=== PATIENT | female | born 1975 | race Two or more races ===

== ENCOUNTER → 2024-06-26 | Outpatient (CLI) | payer MEDICAID, SELFPAY ==
--- NOTE | 2024-06-26 12:00 | XR_ITS ---
Examination: Thyroid sonography complete TECHNIQUE: Grayscale sonographic images thyroid lobes with color flow analysis Exam date and time: June 26, 2024 0002 hours Comparison February 21, 2024, INDICATIONS: thyroid sonogram 02/21/2024 Isthmus left thyroid nodules FINDINGS: Right thyroid 4.6 x 1.5 x 2.0 cm Midpole nodule 6 x 6 mm Lower pole nodule 4 x 4 millimeter Isthmus nodule 6 x 5 mm Left thyroid 4.3 x 1.4 x 1.5 cm Midpole nodule 7 x 7 mm IMPRESSION: Small thyroid nodules as above
== END | disposition home or self-care (01) ==
PROVIDERS: PCP Nurse Practitioner Family; Referring Provider Internal Medicine Endocrinology, Diabetes & Metabolism; Visit Provider Internal Medicine Endocrinology, Diabetes & Metabolism
DX: E04.2 Nontoxic multinodular goiter (principal)
CPT/HCPCS: 76536

== ENCOUNTER → 2024-07-28 | Outpatient (BNVA) | payer MEDICAID, SELFPAY | END | disposition home or self-care (01) | PROVIDERS: PCP Nurse Practitioner Family; Referring Provider Nurse Practitioner Family; Visit Provider Urology | DX: Z09 Encounter for follow-up examination after completed treatment for conditions other than malignant neoplasm (principal); Z87.442 Personal history of urinary calculi; E11.9 Type 2 diabetes mellitus without complications; I10 Essential (primary) hypertension; E66.9 Obesity, unspecified; Z68.38 Body mass index [BMI] 38.0-38.9, adult | CPT/HCPCS: 81003; 99212; G0463 ==

== ENCOUNTER → 2024-08-13 | Outpatient (CLI) | payer MEDICAID, SELFPAY ==
--- NOTE | 2024-08-13 08:45 | XR_ITS ---
Examination: Screening digital mammography, bilateral Computer aided detection 3-D breast Tomosynthesis, bilateral Date and time of exam: 08/13/2024, 8:45 AM Comparisons: September 2021, February 2023 Indications: Screening Technique: Nonmagnified MLO, CC views of the breasts to been obtained, reconstructed from 3-D Tomosynthesis images. R2 computer aided detection program utilized for evaluation of suspicious masses and/or abnormal calcifications. 3-D Tomosynthesis images obtained. Technologist: Findings: The breasts are heterogeneously dense, which may obscure small masses. No evidence of abnormal masses or suspicious calcifications. Impression: BI-RADS category 1: Negative findings (within normal) Recommend 1 year follow-up mammogram
== END | disposition home or self-care (01) ==
LOC: CDIM 08:35
PROVIDERS: Referring Provider Nurse Practitioner Family; Visit Provider Nurse Practitioner Family
DX: Z12.31 Encounter for screening mammogram for malignant neoplasm of breast (principal); R92.313 Mammographic fatty tissue density, bilateral breasts
CPT/HCPCS: 77063; 77067

== ENCOUNTER 2024-10-20 10:33 | Emergency (ER) | payer MEDICAID, SELFPAY ==
[2024-10-20 11:07] VITALS: BP 121/83; PULSE 82; RESP 18; TEMP 36.5; O2SAT 97
--- NOTE | 2024-10-20 11:16 | XR_ITS ---
Examination: CT abdomen and pelvis without contrast. Coronal 3-D reconstructions. Sagittal 2-D reconstructions. Date and time of exam:October 20, 2024 1508 hours INDICATIONS: Bilateral flank pain beginning one week ago, history mild right hydronephrosis 17 mm calculus in the right renal pelvis on CT stone study August 10, 2023 CTDI: vol (mGy): 12.8 DLP: (mGycm): 759 Technique: Axial images of the abdomen have been obtained, 3 mm slice thickness Intravenous contrast material has not been administered. Low dose protocols were performed. One or more of the following dose reduction techniques were used; automated exposure control, adjustment of the mA and/or KV according to patient size, use of iterative reconstruction technique. Findings: Significant diffuse fatty infiltration throughout the liver, no liver or splenic lesions Absent gallbladder No pancreatic or adrenal mass 2 mm lower pole nonobstructing right renal calculus 1 mm lower pole nonobstructing left renal calculus No hydronephrosis or ureteral calculi 12 mm fat-containing umbilical hernia. Normal appendix No bowel obstruction No pelvic mass No bladder mass or bladder calculi IMPRESSION: Bilateral nonobstructing renal calculi, no hydronephrosis or ureteral calculi
--- NOTE | 2024-10-20 11:16 | PD.EDRME ---
Rapid Medical Screening Exam RME Arrival date/time: 10/20/24 10:33 48-year-old female presents the emergency department for complaint of flank pain and back pain Chief Complaint: General Adult/Misc Complain Time Seen by Provider: 10/20/24 11:03 Vital signs: Vital Signs Temperature 97.7 F 10/20/24 11:07 Pulse Rate 82 10/20/24 11:07 Respiratory Rate 18 10/20/24 11:07 Blood Pressure 121/83 10/20/24 11:07 Pulse Oximetry (%) 97 10/20/24 11:07 Oxygen Delivery Method Room Air 10/20/24 11:07
[2024-10-20 11:45] LABS: Basophils % (Auto) 0 % (0-2.5); Eosinophils # (Auto) 0.2 Thou/mm3 (0.0-0.5); Eosinophils % (Auto) 2 % (0-10); Hematocrit 39.1 % (36.0-46.0); Hemoglobin 13.2 g/dL (12.0-16.0); Immature Granulocytes % (Auto) 0 % (0-0); Immature Granulocytes Auto 0.03 Thou/mm3 (0.00-0.00); Lymphocytes # (Auto) 3.4 Thou/mm3 (1.0-4.8); Lymphocytes % (Auto) 31 % (10-50); Mean Corpuscular HGB Conc 33.8 g/dl (31.0-37.0); Mean Corpuscular Hemoglobin 27.6 pg (25.0-35.0); Mean Corpuscular Volume 82 fL (80-100); Monocytes # (Auto) 0.7 Thou/mm3 (0.0-0.8); Monocytes % (Auto) 7 % (0-12); Neutrophils # (Auto) 6.7 Thou/mm3 (1.8-7.7); Neutrophils % (Auto) 60 % (37-80); Nucleated Red Blood Cell % 0 /100 WBC (0); Platelet Count 421 Thou/mm3 (140-440); RDW Standard Deviation 37.6 fL (36.4-46.3); Red Blood Count 4.78 Miln/mm3 (4.00-5.20); White Blood Count 11.1 Thou/mm3 (3.6-11.0)
[2024-10-20 11:58] LABS: Alanine Aminotransferase 35 U/L (10-49); Albumin/Globulin Ratio 1.5 (1.2-2.2); Alkaline Phosphatase 135 U/L (46-116); Anion Gap 6 (7-16); Aspartate Amino Transferase 23 U/L (0-34); BUN/Creatinine Ratio 14 Ratio (12-20); Bilirubin,Total 0.5 mg/dL (0.3-1.2); Blood Urea Nitrogen 10 mg/dL (9-23); Calcium 9.6 mg/dL (8.3-10.6); Calcium (Corrected) 9.6 mg/dL (8.5-10.1); Carbon Dioxide 27.6 mMol/L (20.0-31.0); Chloride 100 mMol/L (98-107); Creatinine (Component) 0.7 mg/dL (0.6-1.3); Globulin 3.3 gm/dL (2.3-3.5); Glucose 130 mg/dL (74-106); Lipase 41 U/L (12-53); Osmolality,Calculated 269 (275-295); Potassium 3.6 mMol/L (3.4-5.1); Sodium 134 mMol/L (136-145); Total Protein 8.3 gm/dL (5.7-8.2); eGFR > 60 See Note
[2024-10-20 12:00] LABS: Collection Type, Urine Clean Catch
[2024-10-20 12:29] LABS: HCG Qualitative,Urine Negative
[2024-10-20 12:45] LABS: Bacteria,Urine Rare; Bilirubin,Urine Negative (Negative); Blood,Urine 2+ (Negative); Clarity,Urine Turbid (Clear/Hazy); Color,Urine Lt-Yellow (Lt Yel-Yel); Glucose, Urine Negative (Negative); Ketones,Urine Negative (Negative); Leukocyte Esterase,Urine Positive (Negative); Nitrite,Urine Negative (Negative); PH,Urine 6.5 (5.0-7.0); Protein,Urine Negative (Neg - Trace); RBC,Urine 48 /hpf (0-3); Specific Gravity,Urine 1.008 (1.001-1.035); Squamous Epithelial Cell,Urine 4 /hpf (0-5); Urobilinogen,Urine Negative mg/dL (0.0-1.0); WBC,Urine 363 /hpf (0-5)
[2024-10-20 12:53] LABS: Culture Indicated,Urine Yes
[2024-10-20 16:10] VITALS: BP 141/88; PULSE 79; RESP 18; TEMP 36.4; O2SAT 96
--- NOTE | 2024-10-20 16:25 | PD.EDADULT ---
ED General RME/HPI General Chief complaint: General Adult/Misc Complain Stated complaint: PAIN/BURNING ON URINATION, FLANK PAIN 1 WK Time Seen by Provider: 10/20/24 11:03 Arrival date/time: 10/20/24 10:33 CC: Left low back pain site-specific HPI onset 1 week ago waxing waning but worse at nighttime, has been taking Tylenol with no relief. Patient is concerned because of a history of kidney stones and is concerned this to happen patient denies nausea vomiting fever chills shortness of breath or difficulty breathing no other complaints at this time. Patient denies bowel or bladder symptoms saddle anesthesia numbness tingling or weakness in the lower extremities. Localized pain is 3-4 and the 10 scale. RME / HPI RME / HPI narrative: 10/20/24 10:33 48-year-old female presents the emergency department for complaint of flank pain and back pain Related Data Home Medications ?Medication ?Instructions ?Recorded ?Confirmed venlafaxine 37.5 mg tablet 37.5 mg PO BID 07/17/23 07/28/24 metformin 500 mg tablet 500 mg PO BID 07/28/24 07/28/24 Previous Rx's ?Medication ?Instructions ?Recorded ciprofloxacin HCl 500 mg tablet 500 mg PO BID #14 tabs 10/20/24 cyclobenzaprine 10 mg tablet 10 mg PO HS #10 tabs 10/20/24 meloxicam 7.5 mg tablet 7.5 mg PO QDAY PRN pain (scale 10/20/24 score 1-3) #10 tabs Allergies Allergy/AdvReac Type Severity Reaction Status Date / Time No Known Allergies Allergy Verified 10/20/24 10:38 Review of Systems Review of Systems Narrative Review of Systems: GEN: No fever, no chills, no weight loss EYES: No discharge, no visual changes, no pain HEENT: No ear pain, no congestion, no sore throat PULM: No shortness of breath, no cough, no congestion CV: No chest pain, no dyspnea on exertion, no palpitations GI: No nausea, no vomiting, no diarrhea, no pain, no constipation : No frequency, no urgency, no dysuria MUSC/SKEL: No joint pain, + back pain SKIN: No rash PSYCH: No hallucinations, no depression HEME/LYMPH: No easy bleeding or bruising tendencies NEURO: No weakness, no headache Past Medical History Past Medical History NEUROLOGIC: Negative Neurological Disorders or Seizures CARDIAC: Positive Hypertension; Negative Cardiac Disorders or Congestive Heart Failure RESPIRATORY: Negative Chronic Obstructive Pulmonary Disease (COPD) GASTROINTESTINAL: Positive Gastrointestinal Disorders and Obesity GENITOURINARY: Positive Genitourinary Disorders and Kidney Stones; Negative Renal Disease REPRODUCTIVE: Positive Previous Pregnancies (4) MUSCULOSKELETAL: Negative Musculoskeletal Disorders ENDOCRINE: Positive Endocrine Disorders and Diabetes Mellitus Type 2 (waiting for meds); Negative Diabetes Mellitus Type 1 HEMATOLOGIC: Negative Blood Disorders PSYCHO/SOCIAL: Positive Anxiety OTHER HISTORY: Positive Measles; Negative Hospitalization, Autoimmune Disease, Shingles, Blood Transfusions, Blood Transfusion Reaction, Anesthesia Reactions or Cancer Family History FAMILY HISTORY: Positive Family Cardiac Disorders; Negative Family Psychiatric Problems, Family Respiratory Disorders, Family Gastrointestinal Problems, Family Cancer, Family Surgery or Family Anesthesia Reaction Surgical History SURGICAL: Positive Tubal Ligation Social History SMOKING STATUS: Never smoker ED Exam Narrative Physical exam: [General: Obese not in any acute distress Head normocephalic HEENT: Within acceptable limits Neck is supple nontender Chest equal chest rise nontender to palpation Respiratory: Clear to auscultation no wheezes crackles or rubs CV: Rate rhythm is regular no murmurs rubs or clicks Abdomen is distended secondary to body habitus soft nontender no masses positive bowel sounds all 4 quadrants Back: Site-specific right lumbar paraspinal tenderness with palpation no left-sided or spinous process tenderness with palpation. Skin: Intact no petechiae rash induration ulceration or crepitus Extremities: Moving all extremity against resistance cap refill less than 2 seconds neurosensory intact Neuro: Awake alert oriented x3 Glascow coma 15 no focal deficits] Course Course Course Narrative: Low back pain with UTI Quality Measures none Orders Category Date Time Status CT abdomen pelvis wo con Stat Exams 10/20/24 11:16 Completed CBC Stat Lab 10/20/24 11:20 Completed Comprehensive Metabolic Panel Stat Lab 10/20/24 11:20 Completed HCG Qualitative,Urine Stat Lab 10/20/24 11:41 Completed Lipase Stat Lab 10/20/24 11:20 Completed UA, C/S IF [Urinalysis, C/S if Indicated] Stat Lab 10/20/24 11:41 Completed Urine Culture Stat Lab 10/20/24 11:41 Received Vital Signs Vital signs: Vital Signs Temperature 97.7 F 10/20/24 11:07 Pulse Rate 82 10/20/24 11:07 Respiratory Rate 18 10/20/24 11:07 Blood Pressure 121/83 10/20/24 11:07 Pulse Oximetry (%) 97 10/20/24 11:07 Oxygen Delivery Method Room Air 10/20/24 11:07 Discharge Plan Plan Patient Disposition: HOME (Self Care) Patient condition on transfer: Stable Prescriptions/Referrals Prescriptions/Med Rec: New meloxicam 7.5 mg tablet 7.5 mg PO QDAY PRN (Reason: pain (scale score 1-3)) Qty: 10 0RF cyclobenzaprine 10 mg tablet 10 mg PO HS Qty: 10 0RF ciprofloxacin HCl 500 mg tablet 500 mg PO BID Qty: 14 0RF No Action venlafaxine 37.5 mg tablet 37.5 mg PO BID metformin 500 mg tablet 500 mg PO BID Referrals: Karen Dee FNP [Primary Care Provider] - In 1 week Problem List Clinical Impression: Low back pain, UTI (urinary tract infection) Patient/Caregiver Discharge Instructions Education Materials: ED Back and Neck Pain, General, ED CYSTITIS Female Adult Print Language: Cuban Stand Alone Forms: [employer] Award Info., Patient Portal Info Letter, Work/School Release PA/OPERATING SYSTEMS SPECIALIST Supervising Physician PA/OPERATING SYSTEMS SPECIALIST Supervising Physician: Qasim Harris ENP MDM Clinical Information Provided by: patient Medical Records reviewed [facility] Meds/Rx considered, not ordered None Labs/Rad/Tests considered, not ordered None EKG EKG not done Labs Labs: Interpreted by wv Lab(s) Interpretation(s): CBC shows a mild leukocytosis of 11.1 no anemia thrombocytopenia CMP shows sodium 135 gap of 6 no other electrolyte imbalances glucose 130 no renal impairment alk phos at 135 no other transaminitis or T. bili elevation Urine is turbid 2+ blood 363 WBCs rare bacteria. Imaging Imaging Interpretation(s): Bilateral nonobstructive stones. No other acute finding
== END 2024-10-20 16:57 | disposition home or self-care (01) ==
PROVIDERS: Nurse Practitioner Primary Care; Emergency Provider Emergency Medicine; PCP Nurse Practitioner Family
DX: N39.0 Urinary tract infection, site not specified (principal); M54.50 Low back pain, unspecified; Z87.442 Personal history of urinary calculi
CPT/HCPCS: 36415; 74176; 80053; 81001; 81025; 83690; 85025; 87077; 87086; 87186; 99284

== ENCOUNTER → 2025-01-26 | Outpatient (BNVA) | payer MEDICAID, SELFPAY | END | disposition home or self-care (01) | PROVIDERS: PCP Nurse Practitioner Family; Referring Provider Nurse Practitioner Family; Visit Provider Urology | DX: R82.994 Hypercalciuria (principal); R82.992 Hyperoxaluria; R82.991 Hypocitraturia; E11.9 Type 2 diabetes mellitus without complications; I10 Essential (primary) hypertension; Z87.442 Personal history of urinary calculi; E66.9 Obesity, unspecified; Z68.36 Body mass index [BMI] 36.0-36.9, adult; Z71.3 Dietary counseling and surveillance | CPT/HCPCS: 81003; 99212; G0463 ==